=== PATIENT | female | born 1975 | race Caucasian/White ===

== ENCOUNTER 2020-10-16 14:54 | Emergency (ER) | payer OTHER, SELFPAY ==
[2020-10-16 14:58] VITALS: BP 153/84; PULSE 72; RESP 18; TEMP 36.6; O2SAT 100
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
--- NOTE | 2020-10-16 15:30 | DI.RAD_ITS ---
Exam(s) XR CLAVICLE RT EXAM: XR CLAVICLE RT CLINICAL HISTORY: fall onto R shoulder, r/o acute fx/AC separation. TECHNIQUE: 2D digital imaging was performed. COMPARISON: No exams were available for comparison FINDINGS: There is widening of the AC joint. No fractures evident. Slight elevation of the clavicle with resp ect to the acromion. Consistent with grade 2 injury. No osseous lesions. IMPRESSION: DATA REPOSITORY: RADIATION DOSE DELIVERED:
--- NOTE | 2020-10-16 16:32 | DI.VRAD_ITS ---
PROCEDURE INFORMATION: Exam: XR Right Clavicle, Complete Exam date and time: 10/16/2020 3:36 PM Age: 45 years old Clinical indication: Other: Fall onto R shoulder, R/O acute fx/ac separation TECHNIQUE: Imaging protocol: XR Right clavicle complete. Views: Any number of views. COMPARISON: No relevant prior studies available. FINDINGS: Bones/joints: No evidence for a fracture. There is widening of the acromioclavicular joint with slight elevation of the clavicle with respect to the acromion by approximately 6 mm. Soft tissues: Unremarkable. IMPRESSION: Widening of the acromioclavicular joint with slight elevation of the clavicle with respect to the acromion suggestive of AC joint separation injury, probably grade 2. Dictated and Authenticated by: Parish Dos Santos MD. Ordering:SHAY Hale MD
== END 2020-10-16 17:11 | disposition home or self-care (01) ==
PROVIDERS: Emergency Provider Physician Assistant
DX: S43.51XA Sprain of right acromioclavicular joint, initial encounter (principal); V19.9XXA Pedal cyclist (driver) (passenger) injured in unspecified traffic accident, initial encounter
CPT/HCPCS: 81025; 90471; 99284; 73000; 99283